=== PATIENT | male | born 1990 | race Caucasian/White ===

== ENCOUNTER 2016-08-14 14:14 | Emergency (ER) | payer OTHER ==
[2016-08-14 14:54] LABS: ABSOLUTE NEUTROPHIL COUNT 6.9 K/mm3 (1.8-7.7); BASO # 0.1 K/mm3 (0.0-0.2); BASO % 0.7 % (0.2-1.0); EOS # 0.1 (0.0-0.5); EOS % 0.6 % (0.9-2.9); HEMATOCRIT 46.8 % (32.0-52.0); HEMOGLOBIN 15.6 gm/l (14.0-18.0); IMM NEUT% 0.3 % (0-1); LYMPH # 2.4 (1.0-4.8); MEAN CORPUSCULAR HGB CONC 33.3 g/dl (33.0-37.0); MEAN PLATELET VOLUME 10.6 fl (7.4-10.4); MONO # 0.9 (0.0-0.8); MONO % 8.3 % (4-12); NEUT % 67.1 % (43-75); PLATELET COUNT 326 K/mm3 (130-400); RED CELL DISTRIBUTION WIDTH 12.9 % (11.5-14.5)
[2016-08-14 15:04] LABS: ALB/GLOB RATIO 1.4 (>1.0); ALBUMIN 4.5 gm/dL (3.5-5.7); CALCIUM 9.7 mg/dL (8.6-10.3)
--- NOTE | 2016-08-14 15:19 | CT ---
CERVICAL SPINE CT WITHOUT CONTRAST HISTORY: Status post fall with neck pain. No intravenous contrast administered contiguous axial images acquired from the posterior fossa to the lower T2 level. Correlation against prior study from 04/27/2014. FINDINGS ALIGNMENT: Grossly unremarkable. COMPRESSION DEFORMITY: None. DISC SPACES: Grossly preserved. FRACTURE: No displaced fracture. DEGENERATIVE CHANGE: Small central protrusion at C4-5, evaluation of spinal canal below the C4-5 level limited by shoulder artifact. PARASPINAL SOFT TISSUES: Airway patent. No gross mass effect. LUNG APICES: Grossly unremarkable within field of view. IMPRESSION: No cervical spine fracture identified. Small central protrusion at C4-5. Results were electronically transmitted to the electronic medical record at 1417 at 1514 hours.
--- NOTE | 2016-08-14 15:26 | CT ---
THORACIC SPINE CT WITHOUT CONTRAST HISTORY: Status post fall with back pain. No intravenous contrast administered contiguous axial images acquired from the upper C7 to upper L2 levels. FINDINGS ALIGNMENT: Grossly unremarkable. COMPRESSION DEFORMITY: None. DISC SPACES: Minor disc space narrowing, most notable at the T6-7 through T9-10 levels. FRACTURE: No displaced fracture. DEGENERATIVE CHANGE: At T6-7, 8 small central protrusion is noted. At T7-8, and moderate right paracentral protrusion noted. At T8-9, a minimal central protrusion is noted. FORAMINAL NARROWING: None identified. PARASPINAL SOFT TISSUES: Airway patent. No gross mass effect. VISIBLE LUNG: Grossly unremarkable within field of view. IMPRESSION: No thoracic spine fracture identified. Moderate right paracentral protrusion identified at T7-8. Results were electronically transmitted to the electronic medical record at 08/14/2016 at 1522 hours.
== END 2016-08-14 15:54 | disposition home or self-care (01) ==
LOC: ED 14:14
DX: S16.1XXA Strain of muscle, fascia and tendon at neck level, initial encounter (principal); S29.012A Strain of muscle and tendon of back wall of thorax, initial encounter; W11.XXXA Fall on and from ladder, initial encounter; Y93.9 Activity, unspecified; Y92.9 Unspecified place or not applicable; Y99.9 Unspecified external cause status